=== PATIENT | male | born 1985 | race Caucasian/White ===

== ENCOUNTER 2020-10-16 05:20 | Emergency (ER) | payer OTHER ==
[2020-10-16 17:55] LABS: %Eosinophils 3.7 % (0.0-10.0); %Lymphocytes 32.7 % (21.0-51.0); %Monocytes 8.4 % (0.0-10.0); %Neutrophils 54.3 % (42.0-75.0); Hemoglobin 18.5 g/dL (14.0-18.0); Manual Diff?? YES; Mean Corpuscular HGB CONC 33.1 g/dL (32.0-36.0); Mean Corpuscular Hemoglobin 29.8 pg (27.0-31.0); Mean Corpuscular Volume 90.2 fL (78.0-98.0); Mean Platelet Volume 8.6 fL (7.4-10.4); Platelet Count 183 thou/uL (130-400); White Blood Cell (WBC) Count 6.5 thou/uL (4.8-10.8)
[2020-10-16 17:56] LABS: #Basophils 0.1 thou/uL (0.0-0.2); #Eosinphils 0.2 thou/uL (0.0-0.7); #Monocytes 0.5 thou/uL (0.11-0.59); #Neutrophils 3.5 thou/uL (1.40-6.50); MDiff Complete? YES
[2020-10-16 17:57] LABS: Anion Gap 15 mmol/L (10-20); BUN (Urea Nitrogen) 18 mg/dL (8.9-20.6); Calc. Creatinine Clearance 0 mL/min (70-130); Carbon Dioxide 25 mmol/L (22-29); Chloride 104 mmol/L (98-107); Glucose 100 mg/dL (70-105); Sodium 140 mmol/L (136-145)
== END 2020-10-16 09:12 | disposition home or self-care (01) ==
LOC: BURERS 05:20
DX: L50.0 Allergic urticaria (principal)
CPT/HCPCS: 36415; 80048; 85025; 96365; 96375

== ENCOUNTER 2021-09-25 18:32 | Emergency (ER) | payer OTHER ==
[2021-09-25] MEDS ORDERED: Ketorolac Tromethamine 30 MG/ML VIAL ONE (19:07)
[2021-09-25 19:14] LABS: #Basophils 0.1 thou/uL (0.0-0.2); #Lymphocytes 2.2 thou/uL (1.20-3.40); #Monocytes 0.6 thou/uL (0.11-0.59); #Neutrophils 3.6 thou/uL (1.40-6.50); %Basophils 1.4 % (0.0-1.0); %Eosinophils 0.4 % (0.0-10.0); %Lymphocytes 33.1 % (21.0-51.0); %Monocytes 9.2 % (0.0-10.0); Hemoglobin 18.4 g/dL (14.0-18.0); Mean Corpuscular HGB CONC 34.3 g/dL (32.0-36.0); Mean Corpuscular Hemoglobin 30.3 pg (27.0-31.0); Mean Corpuscular Volume 88.2 fL (78.0-98.0); Mean Platelet Volume 8.2 fL (7.4-10.4); Platelet Count 200 thou/uL (130-400); RBC Distribution Width 11.2 % (11.5-14.5); Red Blood Cell (RBC) Count 6.07 mill/uL (4.70-6.10); White Blood Cell (WBC) Count 6.5 thou/uL (4.8-10.8)
[2021-09-25 19:26] LABS: ALT (SGPT) 26 U/L (8-55); AST (SGOT) 18 U/L (5-34); Albumin 4.8 g/dL (3.5-5.0); Alkaline Phosphatase 45 U/L (40-110); Anion Gap 16 mmol/L (10-20); BUN (Urea Nitrogen) 24 mg/dL (8.9-20.6); Bilirubin, Total 0.7 mg/dL (0.2-1.2); Calc. Creatinine Clearance 0 mL/min (70-130); Calcium 9.5 mg/dL (7.8-10.44); Carbon Dioxide 24 mmol/L (22-29); Chloride 104 mmol/L (98-107); Globulin 2.6 g/dL (2.4-3.5); Glucose 101 mg/dL (70-105); Potassium 3.8 mmol/L (3.5-5.1); Protein, Total 7.4 g/dL (6.0-8.3); Sodium 140 mmol/L (136-145)
== END 2021-09-25 19:46 | disposition home or self-care (01) ==
LOC: BURERS 18:32
DX: R07.2 Precordial pain (principal)
CPT/HCPCS: 71046; 80053; 84484; 85025; 93005; 96374; J1885